=== PATIENT | male | born 1985 | race Two or more races ===

== ENCOUNTER 2022-04-17 05:08 | Inpatient (IN) | payer MEDICAID, OTHER ==
[~2022-04-17] VITALS: Ht 170.2 cm; Wt 87.3 kg
[2022-04-17] MEDS ORDERED: hydrALAZINE HCL 20 MG/ML VL IV ONE ×2 (06:30→17:15)
[2022-04-17] MEDS ORDERED: MORPHINE SULFATE 4 MG/ML SYR/VIAL IV ONE (06:30)
[2022-04-17] MEDS ORDERED: ONDANSETRON HCL 4 MG/2 ML VIAL IV ONE (06:30)
[2022-04-17 08:03] LABS: Basophils # (auto) 0 10 ^3/uL (0-0.2); Basophils % (auto) 0.7 % (0.0-2.0); Eosinophils # (auto) 0 10 ^3/uL (0-0.8); Eosinophils % (auto) 0.2 % (0.0-7.0); Hematocrit 39.2 % (41.0-53.0); Hemoglobin 13.2 g/dL (13.5-17.5); Lymphocytes # (auto) 0.9 10 ^3/uL (0.4-5.4); Lymphocytes % (auto) 16.2 % (10.0-50.0); Mean Corpuscular Hemoglobin 27.3 pg (28.0-32.0); Mean Corpuscular Hgb Conc. 33.7 g/dL (32.0-36.0); Mean Corpuscular Volume 81.1 fL (80.0-100.0); Monocytes # (auto) 0.3 10 ^3/uL (0-1.3); Monocytes % (auto) 4.8 % (0.0-12.0); Neutrophils # (auto) 4.5 10 ^3/uL (1.6-8.6); Neutrophils % (auto) 78.1 % (37.0-80.0); Nucleated Red Blood Cells % 0.2 %; Red Blood Cells 4.84 10^6/uL (4.5-5.90); Red Cell Distribution Width 13.1 % (11.8-14.3); White Blood Cell 5.8 10^3/uL (4.4-10.8)
[2022-04-17 08:18] LABS: Albumin 4.3 g/dL (3.4-5.0); BUN/Creatinine Ratio 21.9; Calcium 8.9 mg/dL (8.5-10.1); Potassium 4.4 mmol/L (3.5-5.1)
[2022-04-17 08:21] LABS: Bilirubin, Total 0.3 mg/dL (0.2-1.0)
[2022-04-17] MEDS ORDERED: InsuLIN REG 1unit/0.01ml Soln (100units/ml) IV ONE (09:45)
[2022-04-17] MEDS ORDERED: GADOTERATE MEG 10 MMOL/20ml INJ (0.5MMOL/ml) IV ONE (14:46)
[2022-04-17] MEDS ORDERED: hydrALAZINE HCL 20 MG/ML VL IV PRN (17:15)
[2022-04-17] MEDS ORDERED: DEXTROSE (50%) 50ML SYRG IV PRN (17:15)
[2022-04-17] MEDS ORDERED: LISI-716 PO (17:41)
[2022-04-17 18:59] VITALS: BP 145/94
[2022-04-17] MEDS ORDERED: ASPI1TAB37 PO (19:11)
[2022-04-17] MEDS ORDERED: GLIP10TA16 PO (19:11)
[2022-04-17] MEDS ORDERED: METF-372 PO (19:11)
[2022-04-17] MEDS ORDERED: LIRA18IN2 SC (19:11)
[2022-04-17] MEDS ORDERED: CHOL20003 PO (19:11)
[2022-04-17] MEDS: ACCU-CHEK COMFORT CURVE STRIP VI SCH (22:29)
[2022-04-17] MEDS: InsuLIN REG 1unit/0.01ml Soln (100units/ml) SC SCH (22:41)
[2022-04-18 05:00] VITALS: BP 103/72
[2022-04-18] MEDS: ACCU-CHEK COMFORT CURVE STRIP VI SCH ×4 (06:13→21:24)
[2022-04-18] MEDS: HYDROcodone-ACET 5/325MG TAB PO PRN ×2 (06:19→17:29)
[2022-04-18] MEDS: InsuLIN REG 1unit/0.01ml Soln (100units/ml) SC SCH ×4 (06:19→21:28)
[2022-04-18 06:49] LABS: Basophils # (auto) 0 10 ^3/uL (0-0.2); Basophils % (auto) 0.3 % (0.0-2.0); Eosinophils # (auto) 0.1 10 ^3/uL (0-0.8); Eosinophils % (auto) 0.9 % (0.0-7.0); Hematocrit 37.7 % (41.0-53.0); Lymphocytes % (auto) 29.9 % (10.0-50.0); Mean Corpuscular Hemoglobin 27.7 pg (28.0-32.0); Mean Corpuscular Hgb Conc. 34.5 g/dL (32.0-36.0); Mean Corpuscular Volume 80.3 fL (80.0-100.0); Monocytes # (auto) 0.5 10 ^3/uL (0-1.3); Monocytes % (auto) 8.2 % (0.0-12.0); Neutrophils % (auto) 60.7 % (37.0-80.0); Nucleated Red Blood Cells % 0.4 %; Red Cell Distribution Width 13.3 % (11.8-14.3); White Blood Cell 6.5 10^3/uL (4.4-10.8)
[2022-04-18 07:06] LABS: Potassium 3.9 mmol/L (3.5-5.1)
[2022-04-18 07:15] LABS: Albumin 3.5 g/dL (3.4-5.0); BUN/Creatinine Ratio 18.6; Bilirubin, Total 0.4 mg/dL (0.2-1.0); Calcium 8.4 mg/dL (8.5-10.1); Total Protein 6.9 g/dL (6.4-8.2)
[2022-04-18 08:00] VITALS: BP 134/81
[2022-04-18 09:00] VITALS: BP 105/73
[2022-04-18 22:00] VITALS: BP 120/83
[2022-04-19 05:00] VITALS: BP 101/69
[2022-04-19] MEDS: InsuLIN REG 1unit/0.01ml Soln (100units/ml) SC SCH ×4 (06:36→21:24)
[2022-04-19] MEDS: ACCU-CHEK COMFORT CURVE STRIP VI SCH ×4 (06:36→21:23)
[2022-04-19 08:00] VITALS: BP 134/81
[2022-04-19 09:00] VITALS: BP 102/71
[2022-04-19] MEDS: metFORMIN HYDROCHLORIDE 500 MG TAB PO SCH (18:22)
[2022-04-19 22:00] VITALS: BP 130/82
[2022-04-20] MEDS: ACCU-CHEK COMFORT CURVE STRIP VI SCH ×4 (06:24→23:03)
[2022-04-20] MEDS: InsuLIN REG 1unit/0.01ml Soln (100units/ml) SC SCH ×4 (06:28→23:03)
[2022-04-20] MEDS: metFORMIN HYDROCHLORIDE 500 MG TAB PO SCH ×2 (08:00→21:16)
[2022-04-20 09:00] VITALS: BP 127/83
[2022-04-20 12:20] VITALS: BP 131/96
[2022-04-20] MEDS: HYDROcodone-ACET 5/325MG TAB PO PRN (16:08)
[2022-04-20 17:00] VITALS: BP 120/89
[2022-04-20 22:00] VITALS: BP 129/88
[2022-04-21 05:00] VITALS: BP 121/86
[2022-04-21] MEDS: ACCU-CHEK COMFORT CURVE STRIP VI SCH ×4 (06:38→21:20)
[2022-04-21] MEDS: InsuLIN REG 1unit/0.01ml Soln (100units/ml) SC SCH ×4 (06:39→21:23)
[2022-04-21 09:00] VITALS: BP 112/78
[2022-04-21] MEDS: metFORMIN HYDROCHLORIDE 500 MG TAB PO SCH ×2 (10:34→17:43)
[2022-04-21] MEDS: HYDROcodone-ACET 5/325MG TAB PO PRN (17:21)
[2022-04-21 22:32] VITALS: BP 114/77
[2022-04-22] VITALS (7 sets, daily range): BP systolic 107–138; BP diastolic 67–95
[2022-04-22] MEDS: ACCU-CHEK COMFORT CURVE STRIP VI SCH ×4 (06:17→21:01)
[2022-04-22] MEDS: InsuLIN REG 1unit/0.01ml Soln (100units/ml) SC SCH ×4 (06:19→21:03)
[2022-04-22] MEDS: metFORMIN HYDROCHLORIDE 500 MG TAB PO SCH ×2 (08:59→17:50)
[2022-04-22] MEDS ORDERED: glipiZIDE 5 MG TAB PO ONE (11:00)
[2022-04-23 04:21] VITALS: BP 107/75
[2022-04-23] MEDS: ACCU-CHEK COMFORT CURVE STRIP VI SCH ×4 (06:09→22:27)
[2022-04-23] MEDS: InsuLIN REG 1unit/0.01ml Soln (100units/ml) SC SCH ×4 (06:10→22:37)
[2022-04-23] MEDS: glipiZIDE 5 MG TAB PO SCH (06:12)
[2022-04-23 08:10] VITALS: BP 106/76
[2022-04-23] MEDS: metFORMIN HYDROCHLORIDE 500 MG TAB PO SCH ×2 (08:41→18:18)
[2022-04-23 09:21] VITALS: BP 106/76
[2022-04-23] MEDS: BROMOCRIPTINE 2.5 MG PO SCH (10:00)
[2022-04-23 12:46] VITALS: BP 114/80
[2022-04-23] MEDS: HYDROcodone-ACET 5/325MG TAB PO PRN (15:28)
[2022-04-23 16:32] VITALS: BP 118/83
[2022-04-23 22:00] VITALS: BP 106/70
[2022-04-24 05:00] VITALS: BP 100/66
[2022-04-24] MEDS: glipiZIDE 5 MG TAB PO SCH (06:44)
[2022-04-24] MEDS: InsuLIN REG 1unit/0.01ml Soln (100units/ml) SC SCH ×3 (06:48→17:37)
[2022-04-24] MEDS: ACCU-CHEK COMFORT CURVE STRIP VI SCH ×3 (06:49→17:37)
[2022-04-24] MEDS: metFORMIN HYDROCHLORIDE 500 MG TAB PO SCH (07:55)
[2022-04-24 09:00] VITALS: BP 105/75
[2022-04-24] MEDS: BROMOCRIPTINE 2.5 MG PO SCH (10:00)
[2022-04-24 13:00] VITALS: BP 107/78
[2022-04-24 16:54] VITALS: BP 116/88
[2022-04-24] MEDS: HYDROcodone-ACET 5/325MG TAB PO PRN (17:09)
== END 2022-04-24 17:42 | disposition left against medical advice (07) | DRG 424 ==
LOC: ER 05:08 → OVERFLOW 17:15 → EAST 21:50
PROVIDERS: ADMIT Registered Nurse; ATTEND Internal Medicine Nephrology
DX: D35.2 Benign neoplasm of pituitary gland (principal); E22.1 Hyperprolactinemia; E11.65 Type 2 diabetes mellitus with hyperglycemia; I10 Essential (primary) hypertension; E66.9 Obesity, unspecified; Z20.822 Contact with and (suspected) exposure to COVID-19; H53.8 Other visual disturbances; E78.5 Hyperlipidemia, unspecified; Z53.29 Procedure and treatment not carried out because of patient's decision for other reasons; Z83.3 Family history of diabetes mellitus; Z68.30 Body mass index [BMI] 30.0-30.9, adult; Z79.84 Long term (current) use of oral hypoglycemic drugs
CPT/HCPCS: 36415; 70450; 70553; 80053; 82962; 83036; 84146; 85025; 93005; 96374; 96375; G0378; J1815; J2405